=== PATIENT | male | born 1935 | race Caucasian/White ===

== ENCOUNTER 2024-07-16 12:52 | Emergency (ER) | payer OTHER ==
[~2024-07-16] VITALS: Ht 175.3 cm; Wt 102.0 kg
[2024-07-16 12:53] VITALS: TEMP 36.6; O2SAT 97
[2024-07-16 15:43] LABS: BASOPHILS % 1.2 % (0.0-2.0); EOSINOPHILS % 7.2 % (0.0-5.0); HEMATOCRIT. 39.1 % (42.0-52.0); HEMOGLOBIN. 13.2 g/dL (14.0-18.0); LYMPHOCYTES % 28.8 % (20.0-50.0); MEAN CORPUSCULAR HGB CONC 33.7 g/dL (31.0-37.0); MEAN CORPUSCULAR VOLUME 94.9 fL (80.0-94.0); MEAN PLATELET VOLUME 8.8 fl (7.4-10.4); NEUTROPHILS % 54.8 % (40.0-76.0); PLATELET 197 x1000/uL (130-400); RED BLOOD CELL COUNT 4.11 mill/uL (4.7-6.1); RED CELL DISTRIBUTION WIDTH 13.4 % (11.6-14.6); WHITE BLOOD COUNT 7.2 x1000/uL (4.5-11.0)
[2024-07-16 15:50] LABS: CHLORIDE 105 mEq/L (98-107); POTASSIUM 4.1 mEq/L (3.5-5.1); SODIUM 139 mEq/L (136-145)
[2024-07-16 15:51] LABS: CALCIUM 9.5 mg/dL (8.7-10.4); CARBON DIOXIDE 28 mEq/L (21-32)
[2024-07-16 15:56] LABS: CREATININE 0.8 mg/dL (0.6-1.3); GLUCOSE 82 mg/dL (70-105); TROPONIN I HIGH SENSITIVITY 14 ng/L (3.0-53); UREA NITROGEN BLOOD 15 mg/dL (9-23)
[2024-07-16 15:57] LABS: ALANINE AMINOTRANSFERASE 13 IU/L (10-49)
[2024-07-16 15:58] LABS: ALBUMIN 4.1 g/dL (3.2-4.8); ASPARTATE AMINOTRANSFERASE 14 IU/L (<34); BILIRUBIN DIRECT 0.3 mg/dL (<=3.0); BILIRUBIN TOTAL 0.8 mg/dL (0.1-1.0); PROTEIN TOTAL 6.6 g/dL (6.0-8.3)
[2024-07-16 18:25] LABS: CLARITY URINE CLEAR (CLEAR); COLOR URINE YELLOW (YELLOW); GLUCOSE URINE NEGATIVE (NEGATIVE); KETONES URINE NEGATIVE (NEGATIVE); LEUKOCYTE ESTERASE URINE NEGATIVE (NEGATIVE); NITRITE URINE NEGATIVE (NEGATIVE); OCCULT BLOOD URINE NEGATIVE (NEGATIVE); PH URINE 6.5 (4.5-8.0); PROTEIN URINE NEGATIVE (NEGATIVE); SPECIFIC GRAVITY URINE 1.007 (1.005-1.030); UROBILINOGEN URINE 0.2 E.U./dL (0.2-1.0)
[2024-07-16 22:19] VITALS: BP 121/59; PULSE 72; RESP 18; O2SAT 99
== END 2024-07-16 22:20 ==
LOC: ER 12:52
DX: R26.81 Unsteadiness on feet (principal); E11.9 Type 2 diabetes mellitus without complications; E78.00 Pure hypercholesterolemia, unspecified; F03.90 Unspecified dementia, unspecified severity, without behavioral disturbance, psychotic disturbance, mood disturbance, and anxiety; I10 Essential (primary) hypertension; W19.XXXA Unspecified fall, initial encounter; X58.XXXA Exposure to other specified factors, initial encounter; Y93.89 Activity, other specified; Y92.89 Other specified places as the place of occurrence of the external cause; Y99.8 Other external cause status
CPT/HCPCS: 36415; 71045; 74176; 80048; 80076; 81003; 84484; 85025; 93005; 99285

== ENCOUNTER 2024-11-26 22:50 | Emergency (ER) | payer OTHER ==
[~2024-11-26] VITALS: Ht 180.3 cm; Wt 100.0 kg
[2024-11-26 22:58] VITALS: TEMP 36.1; O2SAT 98
[2024-11-27 00:10] LABS: BASOPHILS % 1.2 % (0.0-2.0); EOSINOPHILS % 7.7 % (0.0-5.0); HEMATOCRIT. 36.9 % (42.0-52.0); HEMOGLOBIN. 12.6 g/dL (14.0-18.0); LYMPHOCYTES % 27.9 % (20.0-50.0); MEAN CORPUSCULAR HEMOGLOBIN 31.5 pg (28.0-32.0); MEAN CORPUSCULAR HGB CONC 34.2 g/dL (31.0-37.0); MEAN CORPUSCULAR VOLUME 92.3 fL (80.0-94.0); MEAN PLATELET VOLUME 8.4 fl (7.4-10.4); MONOCYTES % 10.6 % (2.0-8.0); NEUTROPHILS % 52.6 % (40.0-76.0); PLATELET 174 x1000/uL (130-400); RED CELL DISTRIBUTION WIDTH 12.9 % (11.6-14.6); WHITE BLOOD COUNT 7.8 x1000/uL (4.5-11.0)
[2024-11-27 00:18] LABS: CHLORIDE 107 mEq/L (98-107); POTASSIUM 4.6 mEq/L (3.5-5.1); SODIUM 146 mEq/L (136-145)
[2024-11-27 00:19] LABS: CARBON DIOXIDE 28 mEq/L (21-32)
[2024-11-27 00:20] LABS: CALCIUM 8.8 mg/dL (8.7-10.4)
[2024-11-27 00:24] LABS: CREATININE 0.8 mg/dL (0.6-1.3)
[2024-11-27 00:25] LABS: GLUCOSE 149 mg/dL (70-105); UREA NITROGEN BLOOD 20 mg/dL (9-23)
[2024-11-27 00:26] LABS: TROPONIN I HIGH SENSITIVITY 11 ng/L (3.0-53)
[2024-11-27] MEDS: SODIUM CHLORIDE 0.9% 1,000 ML IV ONE (00:36)
[2024-11-27 02:35] LABS: TROPONIN I HIGH SENSITIVITY 12 ng/L (3.0-53)
[2024-11-27 05:56] LABS: CLARITY URINE CLEAR (CLEAR); COLOR URINE YELLOW (YELLOW)
[2024-11-27 05:57] LABS: GLUCOSE URINE NEGATIVE (NEGATIVE); KETONES URINE NEGATIVE (NEGATIVE); NITRITE URINE NEGATIVE (NEGATIVE); OCCULT BLOOD URINE NEGATIVE (NEGATIVE); PH URINE 5.5 (4.5-8.0); PROTEIN URINE NEGATIVE (NEGATIVE); SPECIFIC GRAVITY URINE 1.013 (1.005-1.030); UROBILINOGEN URINE 0.2 E.U./dL (0.2-1.0)
[2024-11-27 05:58] LABS: LEUKOCYTE ESTERASE URINE NEGATIVE (NEGATIVE)
[2024-11-27 06:45] VITALS: BP 116/56; PULSE 54; RESP 16; O2SAT 96
== END 2024-11-27 07:02 | disposition home or self-care (01) ==
LOC: ER 22:50
DX: R41.82 Altered mental status, unspecified (principal); F03.90 Unspecified dementia, unspecified severity, without behavioral disturbance, psychotic disturbance, mood disturbance, and anxiety; E11.9 Type 2 diabetes mellitus without complications; I10 Essential (primary) hypertension; K21.9 Gastro-esophageal reflux disease without esophagitis
CPT/HCPCS: 99285; 70450; 71045; 80048; 83605; 85025; 84484 ×2; 36415 ×2; 93005; 96360; 96361; 81003; J7030